=== PATIENT | male | born 1970 | race African-American/Black ===

== ENCOUNTER 2025-01-05 16:00 | Emergency (ER) | payer SELFPAY ==
[2025-01-05] VITALS (7 sets, daily range): BP systolic 94–129; BP diastolic 61–90
[~2025-01-05] VITALS: Ht 175.3 cm; Wt 79.0 kg
[2025-01-05] MEDS ORDERED: ONDANSETRON 4 MG/TAB ODT SL ONE (16:20)
[2025-01-05] MEDS ORDERED: MORPHINE SULFATE 4 MG/ML VIAL IM ONE (16:20)
[2025-01-05] MEDS ORDERED: NEOMYCIN-BACITRACIN-POLYMYXIN 0.5 GM/PAK PAK TOP ONE (16:20)
[2025-01-05 16:55] LABS: BASO% 0.5 % (0-3); EOS% 0.5 % (0-8); HEMATOCRIT 38.8 % (39.0-50.0); HEMOGLOBIN 13.3 g/dl (14.0-18.0); IMMATURE GRANULOCYTES 0.2 % (0.0-5.0); LYMPH% 57.2 % (15-41); MEAN CORPUSCULAR HGB 37.4 pG CALC (26.0-32.0); MEAN CORPUSCULAR HGB CONC 34.3 g/dL CAL (32.0-36.0); MONO% 11.1 % (2-13); NEUT# 1.32 thou/uL (1.82-7.42); NEUT% 30.5 % (42-76); RED BLOOD COUNT 3.56 mill/uL (4.70-6.10); RED CELL DISTRI WIDTH 12.7 % (11.5-15.5)
[2025-01-05 17:05] LABS: ALBUMIN 4.2 g/dL (3.2-5.0); BILIRUBIN, TOTAL 0.4 mg/dL (0.2-1.3); CREATININE 0.9 mg/dL (0.7-1.3); POTASSIUM 4.1 mmol/l (3.5-5.1); TOTAL PROTEIN 7.2 g/dL (6.3-8.2)
== END 2025-01-05 17:07 | disposition home or self-care (01) | DRG 125 ==
LOC: ED 16:00
PROVIDERS: Nurse Practitioner Family
DX: S00.211A Abrasion of right eyelid and periocular area, initial encounter (principal); S40.211A Abrasion of right shoulder, initial encounter; S50.811A Abrasion of right forearm, initial encounter; S50.312A Abrasion of left elbow, initial encounter; S60.512A Abrasion of left hand, initial encounter; S60.511A Abrasion of right hand, initial encounter; S80.212A Abrasion, left knee, initial encounter; S80.812A Abrasion, left lower leg, initial encounter; M19.011 Primary osteoarthritis, right shoulder; V00.841A Fall from standing electric scooter, initial encounter; F10.129 Alcohol abuse with intoxication, unspecified; Y90.8 Blood alcohol level of 240 mg/100 ml or more; F17.210 Nicotine dependence, cigarettes, uncomplicated